=== PATIENT | male | born 1935 | race Caucasian/White ===

== ENCOUNTER 2016-07-08 09:45 | Day surgery (SDC) | payer MEDICARE, OTHER ==
--- NOTE | ~2016-07-08 | EGD ---
EGD REPORT [facility] [address] [place] [address] NAME: PRAVEEN POPE : [birth year] STATUS : [place] [facility] [place] PAT#: [id number] AGE: 81 ADM/REG DATE : 07/08/16 MR#: [id number] REPORT SERV DATE: 07/08/16 DICTATED BY: ARTHUR CAGE DATE: 07/08/16 REPORT STATUS : Draft [facility]ANSCRIBED BY: [facility] DATE: 07/08/16 [facility] Patient Name: Praveen Pope Date of : 1935 Attending MD: ARTHUR CAGE MD Procedure Date No Time: 07/08/2016 Procedure: Colonoscopy Indications: High risk colon cancer surveillance: Personal history of colonic polyps Referring MD: WALTER SANCHEZ MD Medicines: Monitored Anesthesia Care Complications: No immediate complications. Procedure: Pre-Anesthesia Assessment: - ASA Grade Assessment: III - A patient with severe systemic disease. After I obtained informed consent, the scope was passed under direct vision. Throughout the procedure, the patient's blood pressure, pulse, and oxygen saturations were monitored continuously. The PCF [id number] was introduced through the anus and advanced to the cecum, identified by appendiceal orifice and ileocecal valve. The colonoscopy was performed without difficulty. The patient tolerated the procedure well. The quality of the bowel preparation was adequate. Findings: The digital rectal exam was normal. Pertinent negatives include no palpable rectal lesions. Multiple diverticula were found in the sigmoid colon, in the descending colon and in the transverse colon. Two sessile polyps were found in the transverse colon. The polyps were 4 to 6 mm in size. These polyps were removed with a cold snare. Resection and retrieval were complete. Four sessile polyps were found in the ascending colon. The polyps were 4 to 6 mm in size. These polyps were removed with a cold biopsy forceps. Resection and retrieval were complete. A sessile polyp was found in the ascending colon. The polyp was 7 mm in size. The polyp was removed with a cold snare. Resection and retrieval were complete. Hemorrhoids were found during retroflexion and were moderate. Impression: - Diverticulosis in the sigmoid colon, in the descending colon and in the transverse colon. - Two 4 to 6 mm polyps in the transverse colon. Resected and retrieved. EGD REPORT [address] [address] NAME: PRAVEEN POPE : [birth year] STATUS : [facility] [place] PAT#: [id number] AGE: 81 ADM/REG DATE : 07/08/16 MR#: [id number] REPORT SERV DATE: 07/08/16 DICTATED BY: ARTHUR CAGE DATE: 07/08/16 REPORT STATUS : Draft TRANSCRIBED BY: [employer] DATE: 07/08/16 - Four 4 to 6 mm polyps in the ascending colon. Resected and retrieved. - One 7 mm polyp in the ascending colon. Resected and retrieved. - Hemorrhoids. Recommendation: - Patient has a contact number available for emergencies. The signs and symptoms of potential delayed complications were discussed with the patient. Return to normal activities tomorrow. Written discharge instructions were provided to the patient. - Regular diet. - Continue present medications. - Repeat colonoscopy is not recommended for surveillance. - Due to patient age no further polyp surveillance colonoscopies planned. Procedure Code(s): --- Professional --- 30214, Colonoscopy, flexible, proximal to splenic flexure; with removal of tumor(s), polyp(s), or other lesion(s) by snare technique 47680, 59, Colonoscopy, flexible, proximal to splenic flexure; with biopsy, single or multiple Diagnosis Code(s): --- Professional --- K64.9, Unspecified hemorrhoids K57.30, Diverticulosis of large intestine without perforation or abscess without bleeding D12.2, Benign neoplasm of ascending colon D12.3, Benign neoplasm of transverse colon Z86.010, Personal history of colonic polyps CPT copyright 2013 [employer]. All rights reserved. The codes documented in this report are preliminary and upon classroom coordinator review may be revised to meet current compliance requirements. ARTHUR CAGE MD 07/08/2016 12:57 PM This report has been signed electronically. Number of Addenda: 0 Note Initiated On: 07/08/2016 12:26 PM Scope Withdrawal Time 0 hours 9 minutes 40 seconds EGD REPORT [place] [id number] [id number] NAME: RPAVEEN POPE : [birth year] STATUS : [facility] [place] PAT#: [id number] AGE: 81 ADM/REG DATE : 07/08/16 MR#: [id number] REPORT SERV DATE: 07/08/16 DICTATED BY: ARTHUR CAGE DATE: 07/08/16 REPORT STATUS : Draft TRANSCRIBED BY: [employer] DATE: [facility]/08/16 [facility] [id number]
[~2016-07-08 09:45] MED LIST: AMARYL1 MG PO; FISH-EPA1000 MG PO; LOP50 PO; NEXIUM40 PO; NORV5 PO; PLAVIX PO; PROAIR HFA INH; VITAMIN D31000 UNIT PO; VITE PO; WELCHOL625 MG OR
== END 2016-07-08 23:59 | disposition home or self-care (01) ==
LOC: DMU 09:45
PROVIDERS: Internal Medicine Gastroenterology
PROC: 0DBK8ZZ Excision of Ascending Colon, Via Natural or Artificial Opening Endoscopic (ICD-10-PCS; principal; 2016-07-08 11:30)
PROC: 0DBL8ZZ Excision of Transverse Colon, Via Natural or Artificial Opening Endoscopic (ICD-10-PCS; 2016-07-08 11:30)
DX: Z12.11 Encounter for screening for malignant neoplasm of colon (principal); D12.3 Benign neoplasm of transverse colon; D12.2 Benign neoplasm of ascending colon; K63.5 Polyp of colon; K57.30 Diverticulosis of large intestine without perforation or abscess without bleeding; K64.9 Unspecified hemorrhoids; K21.9 Gastro-esophageal reflux disease without esophagitis; I25.10 Atherosclerotic heart disease of native coronary artery without angina pectoris; I25.2 Old myocardial infarction; I10 Essential (primary) hypertension; E11.9 Type 2 diabetes mellitus without complications; E78.5 Hyperlipidemia, unspecified; E78.00 Pure hypercholesterolemia, unspecified; J44.9 Chronic obstructive pulmonary disease, unspecified; Z95.5 Presence of coronary angioplasty implant and graft; Z86.010 Personal history of colon polyps; Z86.19 Personal history of other infectious and parasitic diseases; Z87.891 Personal history of nicotine dependence; Z79.02 Long term (current) use of antithrombotics/antiplatelets; Z79.899 Other long term (current) drug therapy; Z98.890 Other specified postprocedural states
CPT/HCPCS: 82962; 88305